=== PATIENT | female | born 1980 ===

== ENCOUNTER 2017-10-05 08:33 | Day surgery (SDC) | payer MEDICAID ==
[2016-12-15 09:14] VITALS: BMI 25.4
[2017-10-05] MEDS ORDERED: Lactated Ringer's 1,000 ML IV ONE (08:47)
[2017-10-05] MEDS ORDERED: Lidocaine 2% MPF (5 ml) Inj ONE (10:37)
[2017-10-05] MEDS ORDERED: Propofol 10 mg/ml Inj (20 ML) ONE (10:37)
[2017-10-05 10:59] VITALS: TEMP 97.4
[2017-10-05 11:14] VITALS: BP 100/64; PULSE 76; RESP 16; O2SAT 99
== END 2017-10-05 14:48 | disposition home or self-care (01) ==
LOC: H.ENDO 08:33
PROVIDERS: ATTEND Internal Medicine Gastroenterology
DX: R19.4 Change in bowel habit (principal); K59.00 Constipation, unspecified; R10.32 Left lower quadrant pain; K64.8 Other hemorrhoids
CPT/HCPCS: 45378; J2704; J7120